=== PATIENT | female | born 1955 | race Two or more races ===

== ENCOUNTER 2017-09-26 09:43 | Emergency (ER) | payer MEDICAID, OTHER ==
[~2017-09-26] VITALS: Ht 157.5 cm; Wt 92.5 kg
[~2017-09-26 09:43] MED LIST: AMITRIPTYLINE H75 MG ORAL; ASPIRIN EC81 MG ORAL; CIPRO500 MG PO; ENALAPRIL MALEA20 MG ORAL; FLOXIN OTIC10 DROP OT; GABAPENTIN600 MG ORAL; GLIMEPIRIDE4 MG ORAL; GLIPIZIDE5 MG ORAL; HYDROCHLOROTHIA25 MG ORAL; IBUPROFEN800 MG ORAL; LANTUS SOL100 UNIT/1 SUBQ; METFORMIN HCL1000 M1 ORAL; NORCO 5-325 TA1 EACH ORAL; NOVOLOG100 UNIT/3 SUBQ; UNOBMED
--- NOTE | 2017-09-26 10:20 | Emergency Room Report ---
History of Present Illness General Chief Complaint: General Complaint Source: Patient Present Illness HPI Patient presents with complaints of left-sided knee pain Patient reports that she's been dealing with the discomfort over the past 2 years she feels that she needs another knee replacement on that side as she has had on the right side Denies any acute injury or fall denies any back or flank pain There was a report on triage regarding chest pain however the patient essentially complains of the pain the knee Reports that she feels her whole body is exacerbated with that pain currently denies any chest pain or shortness of breath Denies any fevers or chills Patient has taken Advil at home Reports that her physician has given a referral for x-ray Allergies: Coded Allergies: AMOXICILLIN (Verified Allergy, Intermediate, ITCHING, 05/11/12) CODEINE (Verified Allergy, Intermediate, ITCHING, 05/11/12) Uncoded Allergies: PENICILLIN (Allergy, Unknown, 09/26/17) Patient History Past Medical History: see triage record Pertinent Family History: none Reviewed Nursing Documentation: PMH: Agreed, PSxH: Agreed Nursing Documentation-PMH Past Medical History: No History, Except For Hx Cardiac Problems: No - Arthritis, Right knee replacemnt Hx Hypertension: Yes Hx Pacemaker: No Hx Asthma: Yes Hx COPD: No Hx Diabetes: Yes Hx Cancer: No Hx Gastrointestinal Problems: No Hx Dialysis: No History Of Psychiatric Problem: No Hx Neurological Problems: No Hx Cerebrovascular Accident: Yes - TIA Hx Seizures: No Review of Systems All Other Systems: negative except mentioned in HPI Physical Exam Vital Signs Date Time Temp Pulse Resp B/P (MAP) Pulse Ox O2 Delivery O2 Flow Rate FiO2 09/26/17 09:47 98.1 99 18 118/69 95 Room Air Sp02 EP Interpretation: reviewed, normal General Appearance: well appearing, no apparent distress Head: normocephalic, atraumatic Eyes: bilateral eye PERRL, bilateral eye EOMI ENT: hearing grossly normal, normal pharynx, TMs + canals normal, uvula midline Neck: full range of motion, supple, no meningismus, no bony tend Respiratory: lungs clear, normal breath sounds, no rhonchi, no respiratory distress, no retraction, no accessory muscle use Cardiovascular #1: normal peripheral pulses, regular rate, rhythm, no edema, no gallop, no JVD, no murmur Gastrointestinal: normal bowel sounds, non tender, soft, no mass, no organomegaly, non-distended, no guarding, no hernia, no pulsatile mass, no rebound Genitourinary: no CVA tenderness Musculoskeletal: other - There is some evidence of swelling to the left knee questionable small effusion there is clinical signs of arthritic changes as well otherwise no signs of erythema neurovascularly intact distally Neurologic: oriented x3, responsive, sensory intact Psychiatric: mood/affect normal Skin: warm/dry, palpation normal Lymphatic: normal inspection, no adenopathy Medical Decision Making Diagnostic Impression: Primary Impression: Arthralgia Additional Impression: Knee pain ER Course Multiple differentials considered including but not limited to occult fracture, arthritic changes, septic joint, effusion Patient has a fairly chronic component to her presentation x-ray imaging does reveal significant chronic pathology Patient has a walker at this time will continue to use that Was provided with pain medication and requires close outpatient followup , Other X-Ray Diagnostic Results Other X-Ray Diagnostic Results : X-Ray ordered: left knee # of Views/Limited Vs Complete: 3 View Indication: Pain EP Interpretation: Yes Interpretation: no dislocation, no soft tissue swelling, no fractures, other - Significant spurring and arthritic changes Impression: No acute disease Electronically Signed by: Mic Bernard DO Last Vital Signs Date Time Temp Pulse Resp B/P (MAP) Pulse Ox O2 Delivery O2 Flow Rate FiO2 09/26/17 09:47 98.1 99 18 118/69 95 Room Air Status: improved Disposition: HOME, SELF-CARE Condition: Improved Scripts Prednisone* (PREDNISONE*) 20 Mg Tablet 20 MG ORAL BID, #10 TAB Prov: MIC BERNARD D.O. 09/26/17 Hydrocodone Bit/Acetaminophen 5-325* (NORCO 5-325*) 1 Each Tablet 1 TAB ORAL Q6H Y for For Pain, #10 TAB 0 Refills Prov: MCI BERNARD D.O. 09/26/17 Additional Instructions: Patient is provided with the discharge instructions notified to follow up with primary doctor in the next 2-3 days otherwise return to the er with any worsening symptoms. Please note that this report is being documented using [employer]Chop technology. This can lead to erroneous entry secondary to incorrect interpretation by the dictating instrument. MIC BERNARD D.O. Sep 26, 2017 10:20
[2017-09-26 10:30] VITALS: BP 118/69
[2017-09-26] MEDS ORDERED: HYDROcodone/Acetamin 10/325 tab ORAL ONE (10:30)
[2017-09-26] MEDS ORDERED: Ketorolac 60mg Inj IM ONE (10:30)
--- NOTE | 2017-09-26 11:00 | Diagnostic Imaging Report ---
Indication: Pain Technique: XRAY Knee 3v LT Comparison: None Findings: There is no acute fracture or dislocation. No definite suprapatellar knee joint effusion seen. No radiopaque foreign body noted. There are moderate degenerative changes with tricompartmental osteophyte formation and joint space narrowing , most pronounced at the patellofemoral compartment. There is evidence of intra-articular loose body, possibly related to osteoarthritis or remote injury. IMPRESSION: Moderate degenerative osteoarthrosis of the knee. No acute fracture.
[2017-09-26] MEDS ORDERED: PREDNISONE20 MG ORAL (11:37)
[2017-09-26] MEDS ORDERED: NORCO 5-325 TA1 EACH ORAL (11:37)
[2017-09-26 11:45] VITALS: BP 120/69
[2017-09-26 12:05] VITALS: BP 120/69
== END 2017-09-26 12:07 | disposition home or self-care (01) ==
LOC: EMR 09:59
DX: M25.562 Pain in left knee (principal); M17.12 Unilateral primary osteoarthritis, left knee; I10 Essential (primary) hypertension; E11.9 Type 2 diabetes mellitus without complications; Z96.651 Presence of right artificial knee joint; J45.909 Unspecified asthma, uncomplicated; Z86.73 Personal history of transient ischemic attack (TIA), and cerebral infarction without residual deficits; Z88.0 Allergy status to penicillin; Z88.5 Allergy status to narcotic agent
CPT/HCPCS: 96372; 99284

== ENCOUNTER 2018-09-03 09:16 | Emergency (ER) | payer MEDICAID ==
[~2018-09-03] VITALS: Ht 157.5 cm; Wt 113.4 kg
[~2018-09-03 09:16] MED LIST changes: +PREDNISONE20 MG ORAL
[2018-09-03 09:30] VITALS: BP 143/60
--- NOTE | 2018-09-03 09:30 | NUR ---
ED Nurse Note: pt came to ED from home c/o of cough for 2 months after receiving flu shot. per pt she has pain 9/10 starting from the R side of her neck, down to her R breast. pt states "my right lung hurts". per pt she took and advil today to help with the pain. pt reports shes been to [facility] before for sob and was told she had asthma. denies hx breathing problems, copd. bedside vitals documented. temperature 99.1 F. will continue to monitor and wait for new orders.
[2018-09-03] MEDS ORDERED: Albuterol/Ipratropium 3ml neb HHN ONE (09:45)
--- NOTE | 2018-09-03 09:45 | NUR ---
ED Nurse Note: RT and x-ray tech called.
--- NOTE | 2018-09-03 09:45 | NUR ---
ED Nurse Note: pt blood sugar is 356. notified MD. awaiting new orders.
--- NOTE | 2018-09-03 09:53 | Emergency Room Report ---
History of Present Illness General Chief Complaint: Upper Respiratory Illness Source: Patient, Medical Record Present Illness HPI Patient presented for cough for several weaks, associated right shoulder pain, body aches. Patient takes inhalers for asthma. She is a non-smoker. Patient states that she has been having a dry nonproductive cough. She been noted to have increased body aches. She denied any leg pain or swelling. She reports taking multiple medications for blood pressure. Patient reports having chronic pain to her right shoulder which is somewhat worsened. She states this is worse with abduction above the shoulder level. 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 Allergies: Coded Allergies: AMOXICILLIN (Verified Allergy, Intermediate, ITCHING, 05/11/12) CODEINE (Verified Allergy, Intermediate, ITCHING, 05/11/12) Uncoded Allergies: PENICILLIN (Allergy, Unknown, 09/26/17) Patient History Past Medical History: see triage record Now: No Reviewed Nursing Documentation: PMH: Agreed; PSxH: Agreed Nursing Documentation-PMH Hx Cardiac Problems: No - Arthritis, Right knee replacemnt Hx Hypertension: Yes Hx Pacemaker: No Hx Asthma: Yes Hx COPD: No Hx Diabetes: Yes Hx Cancer: No Hx Gastrointestinal Problems: No Hx Dialysis: No Hx Neurological Problems: No Hx Cerebrovascular Accident: Yes - TIA Hx Seizures: No Review of Systems All Other Systems: negative except mentioned in HPI Physical Exam Vital Signs Date Time Temp Pulse Resp B/P (MAP) Pulse Ox O2 Delivery O2 Flow Rate FiO2 09/03/18 09:19 98.4 91 22 164/97 96 Room Air Sp02 EP Interpretation: reviewed, normal General Appearance: normal inspection, alert, GCS 15, obese, Chronically Ill Head: atraumatic ENT: normal ENT inspection, hearing grossly normal, normal voice Neck: normal inspection, supple, no bony tend, limited range of motion Respiratory: normal inspection, normal breath sounds, no respiratory distress, no retraction, wheezing Cardiovascular #1: regular rate, rhythm, no edema Gastrointestinal: normal inspection, normal bowel sounds, non tender, soft, no guarding, no hernia Genitourinary: no CVA tenderness Musculoskeletal: normal inspection, back normal, decreased range of motion - right should Neurologic: normal inspection, alert, oriented x3, responsive, speech normal Psychiatric: normal inspection, judgement/insight normal, mood/affect normal Skin: normal inspection, normal color, no rash Medical Decision Making Diagnostic Impression: Primary Impression: Shoulder pain, right Additional Impressions: Hyperglycemia Upper respiratory infection ER Course Patient presented for shoulder pain. Differential diagnosis include was not limited to arthritis, rotator cuff injury, radiculopathy, myocardial infarction , neuropathy among others. Because of complexity of patient's case laboratory testing and imaging studies were ordered. Patient did have elevated blood sugar. She was started on IV fluids. Chest x-ray 1 view read by radiology showed. Patient stated that she been noncompliant with her diet for several days. Patient was advised of some laboratory abnormalities which included abnormal liver function test. Patient was advised to follow-up with her primary care physician for recheck. She is given prescription for pain medications. Patient was noted to have prior cholecystectomy. Patient's pain appears to be more musculoskeletal. The patient is advised to follow up with primary care doctor in 1-2 days. Patient is advised to return if any worsening condition or if any changes in status that are concerning. This report is dictated with [employer] wood heel flap trimmer software which may occasionally lead to discrepancies related to use of this software. Labs Test 09/03/18 10:20 09/03/18 10:35 White Blood Count 11.2 K/UL (4.8-10.8) Red Blood Count 5.26 M/UL (4.20-5.40) Hemoglobin 15.1 G/DL (12.0-16.0) Hematocrit 45.9 % (37.0-47.0) Mean Corpuscular Volume 87 FL (80-99) Mean Corpuscular Hemoglobin 28.8 PG (27.0-31.0) Mean Corpuscular Hemoglobin Concent 33.0 G/DL (32.0-36.0) Red Cell Distribution Width 11.5 % (11.6-14.8) Platelet Count 199 K/UL (150-450) Mean Platelet Volume 10.2 FL (6.5-10.1) Neutrophils (%) (Auto) 66.6 % (45.0-75.0) Lymphocytes (%) (Auto) 25.3 % (20.0-45.0) Monocytes (%) (Auto) 6.2 % (1.0-10.0) Eosinophils (%) (Auto) 0.8 % (0.0-3.0) Basophils (%) (Auto) 1.0 % (0.0-2.0) Sodium Level 135 MMOL/L (136-145) Potassium Level 3.8 MMOL/L (3.5-5.1) Chloride Level 99 MMOL/L (98-107) Carbon Dioxide Level 28 MMOL/L (21-32) Anion Gap 8 mmol/L (5-15) Blood Urea Nitrogen 12 mg/dL (7-18) Creatinine 0.7 MG/DL (0.55-1.30) Estimat Glomerular Filtration Rate > 60 mL/min (>60) Glucose Level 385 MG/DL (74-106) Calcium Level 9.3 MG/DL (8.5-10.1) Total Bilirubin 0.6 MG/DL (0.2-1.0) Aspartate Amino Transf (AST/SGOT) 38 U/L (15-37) Alanine Aminotransferase (ALT/SGPT) 89 U/L (12-78) Alkaline Phosphatase 103 U/L (46-116) Total Protein 7.8 G/DL (6.4-8.2) Albumin 3.3 G/DL (3.4-5.0) Globulin 4.5 g/dL Albumin/Globulin Ratio 0.7 (1.0-2.7) Urine Color Pale yellow Urine Appearance Clear Urine pH 7 (4.5-8.0) Urine Specific [place] 1.005 (1.005-1.035) Urine Protein Negative (NEGATIVE) Urine Glucose (UA) 4+ (NEGATIVE) Urine Ketones Negative (NEGATIVE) Urine Blood Negative (NEGATIVE) Urine Nitrite Negative (NEGATIVE) Urine Bilirubin Negative (NEGATIVE) Urine Urobilinogen Normal MG/DL (0.0-1.0) Urine Leukocyte Esterase Negative (NEGATIVE) Last Vital Signs Date Time Temp Pulse Resp B/P (MAP) Pulse Ox O2 Delivery O2 Flow Rate FiO2 09/03/18 09:30 88 16 09/03/18 09:30 99.1 143/60 97 Room Air Status: improved Disposition: HOME, SELF-CARE Condition: Stable Scripts Docusate Sodium* (COLACE*) 100 Mg Capsule 100 MG ORAL TWICE A DAY, #30 CAP Prov: Charlie Lassiter MD 09/03/18 Hydrocodone Bit/Acetaminophen 5-325* (NORCO 5-325*) 1 Each Tablet 1 TAB ORAL Q6H PRN for For Pain, #10 TAB 0 Refills Prov: Charlie Lassiter MD 09/03/18 Charlie Lassiter MD Sep 03, 2018 09:53
[2018-09-03] MEDS ORDERED: Sodium Chloride 500ML 500 ML IV ONE (10:00)
[2018-09-03 10:32] LABS: EOSINOPHILS % (AUTO) 0.8 % (0.0-3.0); HEMATOCRIT 45.9 % (37.0-47.0); HEMOGLOBIN 15.1 G/DL (12.0-16.0); LYMPHOCYTES % (AUTO) 25.3 % (20.0-45.0); MEAN CORPUSCULAR VOLUME 87 FL (80-99); MONOCYTES % (AUTO) 6.2 % (1.0-10.0); NEUTROPHILS % (AUTO) 66.6 % (45.0-75.0); PLATELET COUNT 199 K/UL (150-450); RED BLOOD COUNT 5.26 M/UL (4.20-5.40); RED CELL DISTRIBUTION WIDTH 11.5 % (11.6-14.8); WHITE BLOOD COUNT 11.2 K/UL (4.8-10.8)
[2018-09-03 10:41] LABS: ANION GAP 8 mmol/L (5-15); BLOOD UREA NITROGEN 12 mg/dL (7-18); CALCIUM 9.3 MG/DL (8.5-10.1); CARBON DIOXIDE 28 MMOL/L (21-32); CHLORIDE 99 MMOL/L (98-107); CREATININE 0.7 MG/DL (0.55-1.30); POTASSIUM 3.8 MMOL/L (3.5-5.1); SODIUM 135 MMOL/L (136-145)
[2018-09-03 10:45] LABS: ALANINE AMINOTRANSFERASE 89 U/L (12-78); ALBUMIN 3.3 G/DL (3.4-5.0); ALBUMIN/GLOBULIN RATIO 0.7 (1.0-2.7); ALKALINE PHOSPHATASE 103 U/L (46-116); ASPARTATE AMINO TRANSFERASE 38 U/L (15-37); BILIRUBIN,TOTAL 0.6 MG/DL (0.2-1.0)
[2018-09-03] MEDS ORDERED: Norco 5mg/325mg tab ORAL ONE (10:45)
[2018-09-03 10:53] LABS: APPEARANCE,URINE CLEAR; BILIRUBIN, URINE NEGATIVE (NEGATIVE); COLOR,URINE PALE YELLOW; GLUCOSE, URINE (UA) 4+ (NEGATIVE); KETONES,URINE NEGATIVE (NEGATIVE); LEUKOCYTE ESTERASE ,URINE NEGATIVE (NEGATIVE); NITRITE,URINE NEGATIVE (NEGATIVE); PH,URINE 7 (4.5-8.0); PROTEIN,URINE NEGATIVE (NEGATIVE); UROBILINOGEN,URINE NORMAL MG/DL (0.0-1.0)
[2018-09-03] MEDS ORDERED: Insulin Human Regular 100units/ml 3ml IV ONE (11:00)
[2018-09-03 11:17] VITALS: BP 125/58
[2018-09-03] MEDS ORDERED: COLACE100 MG ORAL (11:52)
[2018-09-03] MEDS ORDERED: NORCO 5-325 TA1 EACH ORAL (11:52)
[2018-09-03 12:05] VITALS: BP 140/65
--- NOTE | 2018-09-03 12:08 | NUR ---
ED Nurse Note: Patient is being discharged from medical care. MD notified and aware of repeat blood sugar 295mg/dl and ordered to d/c patient at this time. D/C instruction and prescription given to patient. Patient verbalized understanding of it. All questions were answered. Removed ID band. Patient ambulated out with steady gait with all her belongings, accompanied by family member.
--- NOTE | 2018-09-04 15:48 | Diagnostic Imaging Report ---
Indication: Dyspnea Comparison: 09/11/2015 A single view chest radiograph was obtained. Findings: Cardiomediastinal appearance is within normal limits for age. The lungs are clear. Pulmonary vascularity is appropriate. The diaphragmatic contour is smooth and costophrenic angles are sharp. No pleural effusions are identified. The bones are unremarkable. Impression: No acute findings
== END 2018-09-03 12:05 | disposition home or self-care (01) ==
LOC: EMR 09:55
DX: J06.9 Acute upper respiratory infection, unspecified (principal); M25.511 Pain in right shoulder; E11.65 Type 2 diabetes mellitus with hyperglycemia; J45.909 Unspecified asthma, uncomplicated; I10 Essential (primary) hypertension; Z88.1 Allergy status to other antibiotic agents; Z88.5 Allergy status to narcotic agent; Z88.0 Allergy status to penicillin; Z96.651 Presence of right artificial knee joint; Z86.73 Personal history of transient ischemic attack (TIA), and cerebral infarction without residual deficits; Z90.49 Acquired absence of other specified parts of digestive tract
CPT/HCPCS: 36415; 71045; 80053; 81003; 82962; 85025; 93005; 94640; 94664; 99284; J1815; J7040; J7620

== ENCOUNTER 2019-05-17 13:16 | Emergency (ER) | payer MEDICAID, OTHER ==
[~2019-05-17] VITALS: Ht 157.5 cm; Wt 92.1 kg
[~2019-05-17 13:16] MED LIST changes: +COLACE100 MG ORAL
--- NOTE | 2019-05-17 13:37 | Emergency Room Report ---
History of Present Illness General Chief Complaint: Back Pain-No Injury Source: Patient Present Illness HPI 63-year-old female history of diabetes, hypertension presents with right flank pain right lower abdominal pain x1 week, she endorses a sharp pain, polyuria, no aggravating or alleviating factors, severity is been moderate and constant, patient denies any fevers but she reports subjective chills, no nausea no vomiting no chest pain, patient presents for evaluation Allergies: Coded Allergies: AMOXICILLIN (Verified Allergy, Intermediate, ITCHING, 05/11/12) CODEINE (Verified Allergy, Intermediate, ITCHING, 05/11/12) Uncoded Allergies: PENICILLIN (Allergy, Unknown, 09/26/17) Patient History Past Medical History: see triage record Social History: Reports: alcohol use - Social Now: No Reviewed Nursing Documentation: PMH: Agreed; PSxH: Agreed Nursing Documentation-PMH Past Medical History: No History, Except For Hx Cardiac Problems: No - Arthritis, Right knee replacemnt Hx Hypertension: Yes Hx Pacemaker: No Hx Asthma: Yes Hx COPD: No Hx Diabetes: Yes Hx Cancer: No Hx Gastrointestinal Problems: No Hx Dialysis: No Hx Neurological Problems: No Hx Cerebrovascular Accident: Yes - TIA Hx Seizures: No Review of Systems All Other Systems: negative except mentioned in HPI Physical Exam Vital Signs Date Time Temp Pulse Resp B/P (MAP) Pulse Ox O2 Delivery O2 Flow Rate FiO2 05/17/19 13:20 99.0 87 15 187/88 (121) 95 Room Air Sp02 EP Interpretation: reviewed, normal General Appearance: well appearing, no apparent distress, alert Head: normocephalic, atraumatic Eyes: bilateral eye PERRL, bilateral eye EOMI ENT: uvula midline, moist mucus membranes Neck: supple, thyroid normal, supple/symm/no masses Respiratory: lungs clear, no respiratory distress, no retraction, no accessory muscle use Cardiovascular #1: normal peripheral pulses, regular rate, rhythm, no edema, no gallop, no murmur Gastrointestinal: soft, no guarding, no rebound, tenderness - RLQ Genitourinary: CVA tenderness (R) Musculoskeletal: normal inspection Neurologic: alert, oriented x3 Psychiatric: mood/affect normal Skin: no rash, warm/dry Medical Decision Making ER Course The patient presents with right flank pain and right lower abdominal pain. Clinically this patient can be ruled out for serious pathology given there is a completely normal neurological exam, no history of IV drug use, and no history of bowel or bladder incontinence, no perianal numbness/tingling, no constipation or urinary retention, initial diagnosis also includes appendicitis , diverticulitis, CT scan is negative, patient's pain is well controlled will provide patient with outpatient prescriptions disposition home with return precautions Reevaluation 2:41 PM, pain is well controlled Laboratory Tests Test 05/17/19 13:08 05/17/19 13:28 White Blood Count 9.9 K/UL (4.8-10.8) Red Blood Count 5.16 M/UL (4.20-5.40) Hemoglobin 15.3 G/DL (12.0-16.0) Hematocrit 46.4 % (37.0-47.0) Mean Corpuscular Volume 90 FL (80-99) Mean Corpuscular Hemoglobin 29.5 PG (27.0-31.0) Mean Corpuscular Hemoglobin Concent 32.9 G/DL (32.0-36.0) Red Cell Distribution Width 11.0 % (11.6-14.8) L Platelet Count 197 K/UL (150-450) Mean Platelet Volume 10.5 FL (6.5-10.1) H Neutrophils (%) (Auto) 66.6 % (45.0-75.0) Lymphocytes (%) (Auto) 23.8 % (20.0-45.0) Monocytes (%) (Auto) 6.9 % (1.0-10.0) Eosinophils (%) (Auto) 1.7 % (0.0-3.0) Basophils (%) (Auto) 1.0 % (0.0-2.0) Prothrombin Time 10.3 SEC (9.30-11.50) Prothrombin Time INR 1.0 (0.9-1.1) PTT 26 SEC (23-33) Sodium Level 138 MMOL/L (136-145) Potassium Level 3.7 MMOL/L (3.5-5.1) Chloride Level 101 MMOL/L (98-107) Carbon Dioxide Level 26 MMOL/L (21-32) Anion Gap 11 mmol/L (5-15) Blood Urea Nitrogen 15 mg/dL (7-18) Creatinine 0.6 MG/DL (0.55-1.30) Estimate Glomerular Filtration Rate > 60 mL/min (>60) Glucose Level 344 MG/DL (74-106) H Calcium Level 9.5 MG/DL (8.5-10.1) Total Bilirubin 0.7 MG/DL (0.2-1.0) Aspartate Amino Transferase (AST) 39 U/L (15-37) H Alanine Aminotransferase (ALT) 76 U/L (12-78) Alkaline Phosphatase 114 U/L (46-116) Troponin I 0.000 ng/mL (0.000-0.056) Total Protein 7.5 G/DL (6.4-8.2) Albumin 3.2 G/DL (3.4-5.0) L Globulin 4.3 g/dL Albumin/Globulin Ratio 0.7 (1.0-2.7) L Lipase 98 U/L (73-393) Urine Color Pale yellow Urine Appearance Clear Urine pH 6 (4.5-8.0) Urine Specific [place] 1.015 (1.005-1.035) Urine Protein Negative (NEGATIVE) Urine Glucose (UA) 4+ (NEGATIVE) H Urine Ketones 3+ (NEGATIVE) H Urine Blood Negative (NEGATIVE) Urine Nitrite Negative (NEGATIVE) Urine Bilirubin Negative (NEGATIVE) Urine Urobilinogen Normal MG/DL (0.0-1.0) Urine Leukocyte Esterase Negative (NEGATIVE) EKG Diagnostic Results EKG Time: 14:17 EP Interpretation: NSR, rate 79, QTc 428, no acute ST elevations, normal axis Rhythm Strip Diag. Results Rhythm Strip Time: 14:21 EP Interpretation: yes Rate: 76 Rhythm: NSR, no PVC's, no ectopy Chest X-Ray Diagnostic Results Chest X-Ray Diagnostic Results : Chest X-Ray Ordered: Yes # of Views/Limited/Complete: 1 View Indication: Other - Abdominal pain EP Interpretation: Yes Interpretation: no consolidation, no effusion, no pneumothorax, no acute cardiopulmonary disease Impression: No acute disease Electronically Signed by: Cecilio Conner MD CT/MRI/US Diagnostic Results CT/MRI/US Diagnostic Results : Impression Procedure: CT Abdomen Pelvis w/Contrast Indication: Abdominal pain Technique: Continuous helical transaxial imaging of the abdomen and pelvis was obtained from the lung bases to the pubic symphysis during intravenous contrast administration. Coronal 2-D reformats were also obtained. Study obtained in a Siemens sensation [address] Automatic Exposure Control was utilized. Total Dose length Product (DLP): [address] Dose Index Volume (CTDIvol): 50.1 mGy Comparison: 05/11/2012 Findings: The lung bases are clear. The liver is hypodense consistent with fatty infiltration. The spleen is unremarkable. Cholecystectomy noted. No hydronephrosis demonstrated. Diverticula demonstrated in the colon. Uterus is present. Bladder is unremarkable. There is no hydronephrosis. The pancreas is unremarkable. There is no adrenal mass. Bowel gas pattern is nonobstructive. Appendix is normal. Aorta is mildly calcified. IMPRESSION: Fatty liver. Status post cholecystectomy The CT scanner at [facility] is accredited by the [employer] and the scans are performed using dose optimization techniques as appropriate to a performed exam including Automatic Exposure control. Dictated By: Ulices Rivera MD Electronically Signed By: Ulices Rivera MD Signed Date/Time 05/17/19 1546 CC: Cecilio Conner MD Last Vital Signs Date Time Temp Pulse Resp B/P (MAP) Pulse Ox O2 Delivery O2 Flow Rate FiO2 05/17/19 13:20 99.0 87 15 187/88 (121) 95 Room Air Disposition: HOME, SELF-CARE Condition: Stable Scripts Ondansetron (Zofran) 4 Mg Tablet 4 MG ORAL Q8H PRN for Nausea & Vomiting, #10 TAB 0 Refills Prov: Cecilio Conner MD 05/17/19 Dicyclomine Hcl* (DICYCLOMINE HCL*) 10 Mg Capsule 10 MG ORAL QID PRN for Abdominal cramps, #20 CAP Prov: Cecilio Conner MD 05/17/19 Naproxen* (NAPROSYN*) 250 Mg Tablet 250 MG ORAL BID PRN for For Pain, #20 TAB 0 Refills Prov: Cecilio Conner MD 05/17/19 [facility] Patient Instructions: Abdominal Pain, Adult, Back Pain, Adult Additional Instructions: The patient was provided with discharge instructions, notified to follow-up with a primary care doctor and or specialist in the next 24-48 hours, and to return to the ED if they have worsening of their symptoms. Please note that this report is being documented using DRAGON technology. This can lead to erroneous entry secondary to incorrect interpretation by the dictating instrument. Cecilio Conner MD May 17, 2019 13:37
[2019-05-17] MEDS ORDERED: cefTRIAXone 1 GM in NS 55 ML IV ONE (13:45)
[2019-05-17] MEDS ORDERED: Omnipaque-300 100ml vial INJ ONE (13:45)
[2019-05-17] MEDS ORDERED: Ketorolac 30mg Inj IV ONE (13:45)
[2019-05-17] MEDS ORDERED: Morphine Sulfate 4mg/ml Inj (IV USE ONLY) IVP ONE ×2 (13:45→15:30)
[2019-05-17 14:06] LABS: APPEARANCE,URINE CLEAR; BILIRUBIN, URINE NEGATIVE (NEGATIVE); COLOR,URINE PALE YELLOW; GLUCOSE, URINE (UA) 4+ (NEGATIVE); KETONES,URINE 3+ (NEGATIVE); LEUKOCYTE ESTERASE ,URINE NEGATIVE (NEGATIVE); NITRITE,URINE NEGATIVE (NEGATIVE); PH,URINE 6 (4.5-8.0); PROTEIN,URINE NEGATIVE (NEGATIVE); UROBILINOGEN,URINE NORMAL MG/DL (0.0-1.0)
[2019-05-17 14:17] VITALS: BP 146/131
[2019-05-17 14:22] LABS: ANION GAP 11 mmol/L (5-15); BLOOD UREA NITROGEN 15 mg/dL (7-18); CALCIUM 9.5 MG/DL (8.5-10.1); CARBON DIOXIDE 26 MMOL/L (21-32); CHLORIDE 101 MMOL/L (98-107); CREATININE 0.6 MG/DL (0.55-1.30); EOSINOPHILS % (AUTO) 1.7 % (0.0-3.0); HEMATOCRIT 46.4 % (37.0-47.0); HEMOGLOBIN 15.3 G/DL (12.0-16.0); LYMPHOCYTES % (AUTO) 23.8 % (20.0-45.0); MEAN CORPUSCULAR VOLUME 90 FL (80-99); MONOCYTES % (AUTO) 6.9 % (1.0-10.0); NEUTROPHILS % (AUTO) 66.6 % (45.0-75.0); PLATELET COUNT 197 K/UL (150-450); POTASSIUM 3.7 MMOL/L (3.5-5.1); RED BLOOD COUNT 5.16 M/UL (4.20-5.40); SODIUM 138 MMOL/L (136-145); WHITE BLOOD COUNT 9.9 K/UL (4.8-10.8)
[2019-05-17 14:26] LABS: ALANINE AMINOTRANSFERASE 76 U/L (12-78); ALBUMIN 3.2 G/DL (3.4-5.0); ALBUMIN/GLOBULIN RATIO 0.7 (1.0-2.7); ALKALINE PHOSPHATASE 114 U/L (46-116); ASPARTATE AMINO TRANSFERASE 39 U/L (15-37); BILIRUBIN,TOTAL 0.7 MG/DL (0.2-1.0)
--- NOTE | 2019-05-17 14:33 | Diagnostic Imaging Report ---
Indication: Chest pain developing Comparison: 09/03/2018 A single view chest radiograph was obtained. Findings: Cardiomediastinal appearance is within normal limits for age. The lungs are clear. Pulmonary vascularity is appropriate. The diaphragmatic contour is smooth and costophrenic angles are sharp. No pleural effusions are identified. The bones are unremarkable. Impression: No acute findings
--- NOTE | 2019-05-17 15:52 | Diagnostic Imaging Report ---
Indication: Abdominal pain Technique: Continuous helical transaxial imaging of the abdomen and pelvis was obtained from the lung bases to the pubic symphysis during intravenous contrast administration. Coronal 2-D reformats were also obtained. Study obtained in a Siemens sensation [address] Automatic Exposure Control was utilized. Total Dose length Product (DLP): 27 a [address] Dose Index Volume (CTDIvol): 50.1 mGy Comparison: 05/11/2012 Findings: The lung bases are clear. The liver is hypodense consistent with fatty infiltration. The spleen is unremarkable. Cholecystectomy noted. No hydronephrosis demonstrated. Diverticula demonstrated in the colon. Uterus is present. Bladder is unremarkable. There is no hydronephrosis. The pancreas is unremarkable. There is no adrenal mass. Bowel gas pattern is nonobstructive. Appendix is normal. Aorta is mildly calcified. IMPRESSION: Fatty liver. Status post cholecystectomy The CT scanner at [facility] is accredited by the [employer] and the scans are performed using dose optimization techniques as appropriate to a performed exam including Automatic Exposure control.
[2019-05-17] MEDS ORDERED: DICYCLOMINE HCL10 MG ORAL (16:14)
[2019-05-17] MEDS ORDERED: NAPROXEN250 MG ORAL (16:14)
[2019-05-17] MEDS ORDERED: ZOFRAN4 MG ORAL (16:14)
[2019-05-17 16:30] VITALS: BP 142/98
[2019-05-17 16:44] VITALS: BP 142/92
== END 2019-05-17 17:26 | disposition home or self-care (01) ==
LOC: EMR 13:40
DX: R10.31 Right lower quadrant pain (principal); K76.0 Fatty (change of) liver, not elsewhere classified; Z90.49 Acquired absence of other specified parts of digestive tract; I10 Essential (primary) hypertension; J45.909 Unspecified asthma, uncomplicated; M19.90 Unspecified osteoarthritis, unspecified site; Z86.73 Personal history of transient ischemic attack (TIA), and cerebral infarction without residual deficits; Z96.651 Presence of right artificial knee joint; E11.9 Type 2 diabetes mellitus without complications; Z88.0 Allergy status to penicillin; Z88.6 Allergy status to analgesic agent; Z88.1 Allergy status to other antibiotic agents
CPT/HCPCS: 36415; 71045; 74177; 80053; 81003; 83690; 84484; 85025; 85610; 85730; 93005; 96365; 96375; 96376; J0696; J1885; J2270; J2405; Q9965; Q9967; S0028; Z7502; 99284

== ENCOUNTER 2020-10-08 11:48 | Emergency (ER) | payer MEDICARE, OTHER ==
[~2020-10-08] VITALS: Ht 157.5 cm; Wt 86.6 kg
[~2020-10-08 11:48] MED LIST changes: +DICYCLOMINE HCL10 MG ORAL; +NAPROXEN250 MG ORAL; +ZOFRAN4 MG ORAL
[2020-10-08 12:04] VITALS: BP 132/86
--- NOTE | 2020-10-08 12:12 | NUR ---
ED Nurse Note:pt stated that she has been sick for over a month. her dr prescribed antibiotics but they didn't help. her chest hurts when she coughs, feels weak, no appetite, her insides ache. she states she just wants to feel better. 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
[2020-10-08] MEDS ORDERED: TYLENOL EXTRA500 MG ORAL (12:35)
[2020-10-08] MEDS ORDERED: PROMETHAZINE-D118 ML ORAL (12:35)
[2020-10-08] MEDS ORDERED: ZITHROMAX250 MG ORAL (12:35)
--- NOTE | 2020-10-08 12:46 | NUR ---
ER DISCHARGE NOTE: Patient is cleared to be discharged per ERMD, pt is aox4, on room air, with stable vital signs. pt was given dc and prescription instructions, pt was able to verbalize understanding. pt is able to ambulate with steady gait. pt took all belongings.
--- NOTE | 2020-10-13 17:16 | Emergency Room Report ---
History of Present Illness General Chief Complaint: Flu Like Symptoms Source: Patient Present Illness HPI 65-year-old female presents for evaluation. States for nearly 1 month she has had cough congestion body aches feeling somewhat weak. Cough is productive with yellowish phlegm. Denies chest pain or shortness of breath. Unsure whether she has Covid or not. Has not been tested. Denies any recent exposures. No other aggravating relieving factors. Denies any other associated symptoms Allergies: Coded Allergies: AMOXICILLIN (Verified Allergy, Intermediate, ITCHING, 05/11/12) CODEINE (Verified Allergy, Intermediate, ITCHING, 05/11/12) Uncoded Allergies: PENICILLIN (Allergy, Unknown, 09/26/17) COVID-19 Screening Contact w/high risk pt: No Experienced COVID-19 symptoms?: No COVID-19 Testing performed DIE INSPECTOR: No Patient History Past Medical History: none, DM, HTN, asthma, CVA/TIA Past Surgical History: none Pertinent Family History: none Social History: Denies: smoking, alcohol use, drug use Now: No Immunizations: UTD Reviewed Nursing Documentation: PMH: Agreed; PSxH: Agreed Nursing Documentation-PMH Past Medical History: No History, Except For Hx Cardiac Problems: No - Arthritis, Right knee replacemnt Hx Hypertension: Yes Hx Pacemaker: No Hx Asthma: Yes Hx COPD: No Hx Diabetes: Yes Hx Cancer: No Hx Gastrointestinal Problems: No Hx Dialysis: No Hx Neurological Problems: No Hx Cerebrovascular Accident: Yes - TIA Hx Seizures: No Review of Systems All Other Systems: negative except mentioned in HPI Physical Exam Sp02 EP Interpretation: reviewed, normal General Appearance: no apparent distress, alert, GCS 15, non-toxic Head: normocephalic, atraumatic Eyes: bilateral eye normal inspection, bilateral eye PERRL ENT: hearing grossly normal, normal pharynx, no angioedema, normal voice Neck: full range of motion, supple/symm/no masses Respiratory: chest non-tender, lungs clear, normal breath sounds, speaking full sentences Cardiovascular #1: regular rate, rhythm, no edema Cardiovascular #2: 2+ carotid (R), 2+ carotid (L), 2+ radial (R), 2+ radial (L), 2+ dorsalis pedis (R), 2+ dorsalis pedis (L) Gastrointestinal: normal bowel sounds, non tender, soft, non-distended, no guarding, no rebound Rectal: deferred Genitourinary: normal inspection, no CVA tenderness Musculoskeletal: back normal, normal range of motion, gait/station normal, non- tender Neurologic: alert, motor strength/tone normal, oriented x3, sensory intact, responsive, speech normal Psychiatric: judgement/insight normal, memory normal, mood/affect normal, no suicidal/homicidal ideation Reflexes: 3+ bicep (R), 3+ bicep (L), 3+ tricep (R), 3+ tricep (L), 3+ knee (R), 3+ knee (L) Lymphatic: no adenopathy Medical Decision Making Diagnostic Impression: Primary Impression: Atypical pneumonia ER Course Hospital Course 65-year-old female presents ED complaining of bodyaches and cough x 1 month Differential diagnoses include: URI, pharyngitis, otitis media, asthma Clinical course Patient placed on stretcher. After initial history, physical exam reveals a female in no acute distress. Bilateral TM unremarkable. No pharyngeal erythema. No tonsillar exudates. No lymphadenopathy. lungs clear. abdomen soft. Presentation consistent with atypical pneumonia. Iteration for Covid however patient not tachypneic or hypoxic or showing any signs of distress. Recommend outpatient testing but will prescribe antibiotics. Safe for discharge with close outpatient follow-up Diagnosis - atypical pneumonia Stable and discharged home with Rx Zpack, Tylenol, promethazine. Instructed to followup with PMD. Return to ED if symptoms recur or worsen Status: improved Disposition: HOME, SELF-CARE Condition: Stable Scripts Acetaminophen* (TYLENOL EXTRA STRENGTH*) 500 Mg Tablet 500 MG ORAL Q8H PRN for Prn Headache/Temp > 101, #30 TAB 0 Refills Prov: Andres Burgos MD 10/08/20 D-Methorphan Hb/Prometh Hcl* (PROMETHAZINE-DM SYRUP*) 118 Ml Syrup 5 ML ORAL Q6H PRN for For Cough, #118 ML 0 Refills Prov: Andres Burgos MD 10/08/20 Azithromycin* (ZITHROMAX*) 250 Mg Tablet 250 MG ORAL DAILY, #6 TAB 0 Refills Take two tables once daily for 1 day, then one tablet once daily for 4 days. Prov: Andres Burgos MD 10/08/20 Patient Instructions: Community-Acquired Pneumonia, Adult, [id number] Andres Burgos MD Oct 13, 2020 17:16
== END 2020-10-08 12:47 | disposition home or self-care (01) ==
LOC: EMR 12:28
DX: J18.9 Pneumonia, unspecified organism (principal); Z88.6 Allergy status to analgesic agent; Z88.0 Allergy status to penicillin; E11.9 Type 2 diabetes mellitus without complications; I10 Essential (primary) hypertension; Z86.73 Personal history of transient ischemic attack (TIA), and cerebral infarction without residual deficits; M19.90 Unspecified osteoarthritis, unspecified site; Z96.651 Presence of right artificial knee joint
CPT/HCPCS: 99282